=== PATIENT | male | born 1990 | race African-American/Black ===

== ENCOUNTER 2017-07-07 09:58 | Day surgery (SDC) | payer OTHER ==
[~2017-07-07 09:58] MED LIST: LIDOCAINE 2% (SDV) 5 ML INJ
[2017-07-07] MEDS ORDERED: METOCLOPRAMIDE 10 MG INJ IV (11:30)
[2017-07-07] MEDS ORDERED: MEPERIDINE 25 MG INJ IV (11:30)
[2017-07-07] MEDS ORDERED: ALBUTEROL 0.083% (NEB) 2.5 MG/3 ML AMP HHN (11:30)
[2017-07-07] MEDS ORDERED: HYDROmorphONE (0.2 MG/ML) 10ML SYG IV ×3 (11:30)
[2017-07-07] MEDS ORDERED: DIPHENHYDRAMINE 50 MG INJ IV (11:30)
[2017-07-07] MEDS ORDERED: EPHEDrine SULFATE 50 MG/5 ML SYG IV (11:30)
[2017-07-07] MEDS ORDERED: hydrALAzine 20 MG INJ IV (11:30)
[2017-07-07] MEDS ORDERED: MIDAZOLAM 1 MG/ML 2 ML INJ IV (11:30)
[2017-07-07] MEDS ORDERED: OXYCODONE/ACETAMINOPHEN (5/325) TAB PO ×2 (11:30→12:30)
[2017-07-07] MEDS ORDERED: FENTAnyl 50 MCG/ML VIAL IV ×3 (11:30)
[2017-07-07] MEDS ORDERED: LABETALOL HCL 20MG INJ IV (11:30)
[2017-07-07] MEDS ORDERED: ONDANSETRON 4 MG INJ IV ×2 (11:30→12:30)
[2017-07-07] MEDS ORDERED: KETOROLAC 30 MG INJ IV (11:30)
[2017-07-07] MEDS ORDERED: SOD CHLORIDE 0.9% 1,000 ML IV (12:00)
[2017-07-07] MEDS ORDERED: POLYMYXIN/BACITRACIN 1L IRRIG (12:09)
[2017-07-07] MEDS ORDERED: GENTAMICIN (12:09)
[2017-07-07] MEDS ORDERED: NS (12:09)
[2017-07-07] MEDS ORDERED: GENTAMICIN 80 MG INJ (12:12)
[2017-07-07] MEDS ORDERED: MIDAZOLAM 1 MG/ML 2 ML INJ (12:13)
[2017-07-07] MEDS ORDERED: PROPOFOL 20 ML (12:14)
[2017-07-07] MEDS ORDERED: morphine 2 MG INJ IV (12:30)
[2017-07-07] MEDS ORDERED: BUPIVACAINE LIPOSOME/PF 266 MG/20 ML VIAL INFIL (12:30)
[2017-07-07] MEDS ORDERED: DEXAMETHASONE 4 MG/ML 1 ML INJ (12:36)
[2017-07-07] MEDS ORDERED: CEFAZOLIN 1 GM INJ (12:36)
[2017-07-07] MEDS ORDERED: ROCURONIUM 50 MG INJ ×2 (12:36)
[2017-07-07] MEDS: POLYMYXIN/BACITRACIN 1L IRRIG IRR (12:37)
[2017-07-07] MEDS ORDERED: morphine 10 MG INJ (12:37)
[2017-07-07] MEDS: BUPIVACAINE 0.25% (MPF) 30 ML INJ (12:37)
[2017-07-07] MEDS ORDERED: SUGAMMADEX SODIUM 200 MG/2 ML VIAL IV (13:47)
[2017-07-07] MEDS ORDERED: ONDANSETRON 4 MG INJ (13:52)
[2017-07-07] MEDS: OXYCODONE/ACETAMINOPHEN (5/325) TAB PO (15:00)
== END 2017-07-07 15:43 | disposition home or self-care (01) ==
LOC: SDS 09:58
DX: Z42.8 Encounter for other plastic and reconstructive surgery following medical procedure or healed injury (principal)
CPT/HCPCS: 11970